=== PATIENT | male | born 1965 | race African-American/Black ===

== ENCOUNTER 2020-05-06 06:10 | Emergency (ER) | payer OTHER ==
[~2020-05-06] VITALS: Ht 182.9 cm; Wt 102.2 kg
[2020-05-06 07:16] VITALS: BP 161/93
--- NOTE | 2020-05-06 08:13 | PHYS DOC ---
Past Medical History Past Medical History: No Pertinent History Past Surgical History: No Surgical History Smoking Status: Never Smoker Alcohol Use: None General Adult EDM: Chief Complaint: EYE PROBLEMS HPI: HPI: Patient is a 54 year old male who presents with acute left eye bleeding. Patient reports waking up shortly prior to arrival with acute bleeding of left eye. He denies any known trauma and unsure if he scratched his eye as he was sleeping. Bleeding concerned him prompting him to transport to [facility] ED for evaluation. Nonetheless, bleeding spontaneously resolved <5mins after onset. He has not had any reoccurrence. He is asymptomatic on arrival to our ED today. He admits he is an established patient of Dr. Marco Evans, an corporate account executive in the [facility] area. He is being treated actively for a medial eye fold infection for which he is taking neomycin/polymyxin/dexamethasone ointment Review of Systems: Review of Systems: Fourteen system , review of systems has been reviewed. See HPI for pertinent positives and negative responses, other teixeira all other systems are negative, non pertinent or non contributory. No occular pain and/or changes in vision Heart Score: Risk Factors: Risk Factors: DM, Current or recent (<one month) smoker, HTN, HLP, family hist ory of CAD, obesity. Risk Scores: Score 0 - 3: 2.5% MACE over next 6 weeks - Discharge Home Score 4 - 6: 20.3% MACE over next 6 weeks - Admit for Clinical Observation Score 7 - 10: 72.7% MACE over next 6 weeks - Early Invasive Strategies Allergies: Allergies: Allergies Coded Allergies Type Severity Reaction Last Updated Verified No Known Drug Allergies 05/06/20 No Physical Exam: PE: Constitutional: Well developed, well nourished, no acute distress, non-toxic appearance. [] HENT: Normocephalic, atraumatic, bilateral external ears normal, oropharynx moist, no oral exudates, nose normal. [] Eyes: PERRLA, EOMI, conjunctiva normal, no discharge. Pupils are equally round and reactive to light Visual acuity: 20/20 bilaterally, 20/25 Rt, 20/50 Lt, this was performed without home glasses Eyelids/under eyelids: normal Conjunctivae and sclera: normal Medial flesh-like vegetation in medial fold of left eye which is apparent site of infection per patient Neck: Normal range of motion, no tenderness, supple, no stridor. [] Cardiovascular:Heart rate regular rhythm, no murmur [] Lungs & Thorax: Bilateral breath sounds clear to auscultation [] Abdomen: Bowel sounds normal, soft, no tenderness, no masses, no pulsatile masses. [] Skin: Warm, dry, no erythema, no rash. [] Back: No tenderness, no CVA tenderness. [] Extremities: No tenderness, no cyanosis, no clubbing, ROM intact, no edema. [] Neurologic: Alert and oriented X 3, normal motor function, normal sensory function, no focal deficits noted. [] Psychologic: Affect normal, judgement normal, mood normal. [] Current Patient Data: Vital Signs: Vital Signs Date Time Temp Pulse Resp B/P (MAP) Pulse Ox O2 Delivery O2 Flow Rate FiO2 05/06/20 07:16 98.4 70 16 161/93 (115) 97 Room Air 98.4 EKG: EKG: [] Radiology/Procedures: Radiology/Procedures: [] Course & Med Decision Making: Course & Med Decision Making Comprehensive history and physical exam non-concerning in hemodynamically stable patient with no concerning findings of left eye Patient's Bed Machine Operator called, no treatment indicated at present, Dr. Evans advised patient to call his office and be seen later today for in-office shorty luation. All questions and concerns addressed prior to discharge Strict return precautions discussed at length with good understanding Leon Disclaimer: Leon Disclaimer: This electronic medical record was generated, in whole or in part, using a voice recognition dictation system. Departure Departure Impression: Primary Impression: Infection of left eye Disposition: 01 HOME, SELF-CARE Condition: STABLE Referrals: NO PCP (PCP) Additional Instructions: As discussed prior to ED departure, please call Dr. Marco Evans this morning after 0930 hrs. to schedule office appointment today between 1 PM and 5 PM Justicifation of Admission Dx: Justifications for Admission: Justification of Admission Dx: N/A RICHARD FLORES DO May 06, 2020 08:13
== END 2020-05-06 09:25 | disposition home or self-care (01) ==
LOC: ER 06:10
DX: H44.002 Unspecified purulent endophthalmitis, left eye (principal)
CPT/HCPCS: 99282

== ENCOUNTER 2020-07-20 10:43 | Emergency (ER) | payer OTHER ==
[~2020-07-20] VITALS: Ht 182.9 cm; Wt 102.0 kg
[2020-07-20 10:52] VITALS: BP 140/92
[2020-07-20] MEDS ORDERED: NAPROXEN 500 MG TABLET PO STA (11:20)
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
[2020-07-20] MEDS ORDERED: CYCL10TA2 PO (12:21)
[2020-07-20] MEDS ORDERED: DICL50TA2 PO (12:21)
== END 2020-07-20 12:31 | disposition home or self-care (01) ==
LOC: ER 10:43
DX: G89.11 Acute pain due to trauma (principal); M54.5 Low back pain; V98.8XXA Other specified transport accidents, initial encounter; Y93.89 Activity, other specified; Y92.413 State road as the place of occurrence of the external cause; Y99.8 Other external cause status
CPT/HCPCS: 72100; 99283